=== PATIENT | male | born 1945 | race Caucasian/White ===

== ENCOUNTER 2017-04-13 10:55 | Outpatient (CLI) | payer MEDICARE | END 2017-04-13 10:56 | disposition home or self-care (01) | LOC: BICRAD 10:55 | PROVIDERS: ATTEND Family Medicine | DX: M25.562 Pain in left knee (principal); M17.12 Unilateral primary osteoarthritis, left knee ==

== ENCOUNTER 2018-06-07 08:32 | Outpatient (CLI) | payer MEDICARE ==
--- NOTE | 2018-06-07 10:51 | CT ---
CT ABDOMEN WITH AND WITHOUT IV CONTRAST: HISTORY: Renal cyst, liver cyst, prostate cancer. FINDINGS: There are no previous exams for comparison. There are mild dependent changes in the right lung base. The patient is post cholecystectomy. The p ancreas, adrenal glands, and right kidney are normal. The spleen measures 14.8 cm in length. There is a 4 x 4.5 cm cyst in the left lobe of the liver and a 3.2 x 2.7 cm cyst in the inferior aspe ct of the right lobe of the liver. A 1 cm low-density lesion in the right lobe of the liver and a 7 mm low-density lesion in the left lobe of the liver are too small to characterize but likely cysts. There is a 2 cm exophytic, partially exophytic cyst arising from the posterior cortex of the left kid pantera. No free air, free fluid, or lymphadenopathy is seen. There are vascular calcifications without evide nce of aneurysmal dilatation of the abdominal aorta. Degenerative changes are present in the spine. IMPRESSION: 1. Liver cysts. 2. Left renal cyst. 3. Splenomegaly. POS: OFF
[2018-06-07] MEDS ORDERED: Iopamidol 370 76% 100 ML VIAL ONE (11:00)
== END 2018-06-07 08:33 | disposition home or self-care (01) ==
LOC: BICCT 08:32
PROVIDERS: ATTEND Family Medicine
DX: K76.89 Other specified diseases of liver (principal); N28.1 Cyst of kidney, acquired; R16.1 Splenomegaly, not elsewhere classified
CPT/HCPCS: 74170; 82565; Q9967

== ENCOUNTER 2019-10-10 14:41 | Outpatient (CLI) | payer MEDICARE ==
--- NOTE | 2019-10-10 15:05 | RAD ---
Left ankle 3 views: 10/10/2019 COMPARISON: None available HISTORY: Ankle pain, no history of injury FINDINGS: The talar dome and the ankle mortise appear intact. There is enthesophyte formation at the origin of the plantar aponeurosis. There is mild tibiotalar joint space narrowing. No acute fracture or dislocation is noted. IMPRESSION: No acute findings.
== END 2019-10-10 14:42 | disposition home or self-care (01) ==
LOC: BICRAD 14:41
PROVIDERS: ATTEND Family Medicine
DX: M25.572 Pain in left ankle and joints of left foot (principal)

== ENCOUNTER 2022-04-20 14:23 | Outpatient (CLI) | payer MEDICARE ==
[~2022-04-20 14:23] MED LIST: Iopamidol-370 76% 500 ML 1 ML ONE
== END 2022-04-20 14:24 | disposition home or self-care (01) ==
LOC: BICCT 14:23
PROVIDERS: ATTEND Family Medicine
DX: R10.11 Right upper quadrant pain (principal); N20.0 Calculus of kidney; N28.1 Cyst of kidney, acquired; K76.89 Other specified diseases of liver
CPT/HCPCS: 74178; Q9967

== ENCOUNTER 2022-05-14 15:57 | Outpatient (CLI) | payer MEDICARE | END 2022-05-14 15:58 | disposition home or self-care (01) | LOC: BICRAD 15:57 | PROVIDERS: ATTEND Family Medicine | DX: S29.011A Strain of muscle and tendon of front wall of thorax, initial encounter (principal) | CPT/HCPCS: 71046 ==

== ENCOUNTER 2023-01-14 15:54 | Outpatient (CLI) | payer MEDICARE | END 2023-01-14 15:55 | disposition home or self-care (01) | LOC: BICRAD 15:54 | PROVIDERS: ATTEND Family Medicine | DX: M25.551 Pain in right hip (principal) ==

== ENCOUNTER 2024-11-06 10:17 | Inpatient (IN) | payer MEDICARE ==
[2024-11-05 17:08] VITALS: BMI 28.8
[2024-11-06] MEDS ORDERED: Bacitracin Zinc Ointment 30 gm TUBE ONE (11:19)
[2024-11-06] MEDS ORDERED: Lidocaine 1% PF 5 ML VIAL ONE ×2 (11:36→12:32)
[2024-11-06] MEDS ORDERED: PROPOFOL 20 ML ONE (11:36)
[2024-11-06 11:45] LABS: #Basophils Less than 0.03 10x3/uL (0.0-0.2); #Eosinophils 0.09 10x3/uL (0.0-0.7); #Monocytes 1.31 10x3/uL (0.11-0.59); #Neutrophils 7.00 10x3/uL (1.40-6.50); %Basophils 0.2 % (0.0-1.0); %Eosinophils 0.8 % (0.0-10.0); %Lymphocytes 26.7 % (21.0-51.0); %Monocytes 11.4 % (0.0-10.0); %Neutrophils 60.6 % (42.0-75.0); Hematocrit 40.8 % (42.0-52.0); Hemoglobin 13.4 g/dL (14.0-18.0); Mean Corpuscular Hemoglobin 29.6 pg (27.0-31.0); Mean Corpuscular Volume 90.3 fL (78.0-98.0); Platelet Count 196 10x3/uL (130-400); Red Blood Cell (RBC) Count 4.52 mill/uL (4.70-6.10); White Blood Cell (WBC) Count 11.54 10x3/uL (4.8-10.8)
[2024-11-06] MEDS ORDERED: Ondansetron PF 4 MG/2 ML Vial ONE (11:48)
[2024-11-06] MEDS ORDERED: CEFAZOLIN 2 GM VIAL ONE (11:52)
[2024-11-06 12:01] LABS: Anion Gap 15 mmol/L (10-20); BUN (Urea Nitrogen) 18 mg/dL (8.4-25.7); Calc. Creatinine Clearance 80 mL/min (70-130); Carbon Dioxide 24 mmol/L (23-31); Chloride 100 mmol/L (98-107); Potassium 2.9 mmol/L (3.5-5.1); Sodium 136 mmol/L (136-145)
[2024-11-06 12:02] LABS: Calcium 9.4 mg/dL (7.8-10.44); Glucose 103 mg/dL (83-110)
[2024-11-06] MEDS ORDERED: HYDROcodone/Acetaminophen 5/325 mg Tablet PO PRN (13:25)
[2024-11-06] MEDS ORDERED: Acetaminophen/Codeine 30-300mg Tablet PO PRN (13:25)
[2024-11-06] MEDS ORDERED: dilTIAZem 25 MG/5 ML VIAL ONE ×3 (13:26→13:51)
[2024-11-06] MEDS ORDERED: Communication Order-Pharmacy FS SCH (13:30)
[2024-11-06] MEDS ORDERED: Diltiazem HCl/D5W 125 MG in Premix 1 BAG IVPB SCH ×2 (13:45→20:23)
[2024-11-06] MEDS ORDERED: Vancomycin 1 GM in Premix 1 BAG IVPB SCH (16:00)
[2024-11-06 17:16] LABS: #Basophils Less than 0.03 10x3/uL (0.0-0.2); #Eosinophils Less than 0.03 10x3/uL (0.0-0.7); #Monocytes 0.43 10x3/uL (0.11-0.59); #Neutrophils 9.53 10x3/uL (1.40-6.50); %Basophils 0.1 % (0.0-1.0); %Eosinophils 0.1 % (0.0-10.0); %Lymphocytes 15.6 % (21.0-51.0); %Monocytes 3.6 % (0.0-10.0); %Neutrophils 80.3 % (42.0-75.0); Hematocrit 42.3 % (42.0-52.0); Hemoglobin 13.9 g/dL (14.0-18.0); Mean Corpuscular Hemoglobin 29.8 pg (27.0-31.0); Mean Corpuscular Volume 90.6 fL (78.0-98.0); Platelet Count 197 10x3/uL (130-400); Red Blood Cell (RBC) Count 4.67 mill/uL (4.70-6.10); White Blood Cell (WBC) Count 11.86 10x3/uL (4.8-10.8)
[2024-11-06 17:30] LABS: INR-International Normal Ratio 1.0; Prothrombin Time 13.7 sec (12.0-14.7)
[2024-11-06 17:31] LABS: PTT 30.2 sec (22.9-36.1)
[2024-11-06] MEDS: dilTIAZem 25 MG/5 ML VIAL SLOW IVP SCH (23:54)
[2024-11-06] MEDS: Potassium Chloride 20 MEQ in Premix 1 BAG IVPB SCH (23:55)
[2024-11-06] MEDS: Gentamicin Sulfate 100 MG in Premix 1 BAG IVPB SCH (23:55)
[2024-11-07] MEDS: Aspirin 81 mg Enteric Coated Tablet PO SCH (01:11)
[2024-11-07 04:31] LABS: #Basophils Less than 0.03 10x3/uL (0.0-0.2); #Eosinophils Less than 0.03 10x3/uL (0.0-0.7); #Monocytes 1.01 10x3/uL (0.11-0.59); #Neutrophils 7.28 10x3/uL (1.40-6.50); %Basophils 0.1 % (0.0-1.0); %Eosinophils 0.0 % (0.0-10.0); %Lymphocytes 21.3 % (21.0-51.0); %Monocytes 9.5 % (0.0-10.0); %Neutrophils 68.8 % (42.0-75.0); Hematocrit 37.0 % (42.0-52.0); Hemoglobin 12.3 g/dL (14.0-18.0); Mean Corpuscular Hemoglobin 29.9 pg (27.0-31.0); Mean Corpuscular Volume 90.0 fL (78.0-98.0); Platelet Count 196 10x3/uL (130-400); Red Blood Cell (RBC) Count 4.11 mill/uL (4.70-6.10); White Blood Cell (WBC) Count 10.59 10x3/uL (4.8-10.8)
[2024-11-07 04:38] LABS: ALT (SGPT) 14 U/L (Less than 45); AST (SGOT) 22 U/L (11-34); Albumin 3.3 g/dL (3.1-4.5); Alkaline Phosphatase 48 U/L (40-110); Anion Gap 14 mmol/L (10-20); BUN (Urea Nitrogen) 16 mg/dL (8.4-25.7); Bilirubin, Total 0.8 mg/dL (0.3-1.2); Calc. Creatinine Clearance 87 mL/min (70-130); Calcium 8.8 mg/dL (7.8-10.44); Carbon Dioxide 23 mmol/L (23-31); Chloride 102 mmol/L (98-107); Globulin 3.0 g/dL (2.4-3.5); Glucose 120 mg/dL (83-110); Magnesium 2.0 mg/dL (1.6-2.6); Potassium 3.2 mmol/L (3.5-5.1); Sodium 136 mmol/L (136-145)
[2024-11-07] MEDS: TETANUS, DIPHTHERIA TOX,ADULT (TDVAX) 0.5 ML VIAL IM ONE (12:05)
[2024-11-07] MEDS: Boostrix 0.5 ML (Tdap) VIAL (>/=7 yrs of age) IM ONE (12:06)
[2024-11-07] MEDS: Gentamicin Sulfate 100 MG in Premix 1 BAG IVPB SCH (17:21)
[2024-11-07 17:40] VITALS: BP 131/66; TEMP 97.9
== END 2024-11-07 18:30 | disposition home or self-care (01) | DRG 513 ==
LOC: SDC 10:17 → 2NO 14:58
PROVIDERS: ADMIT Orthopaedic Surgery Hand Surgery; ATTEND Orthopaedic Surgery Hand Surgery
PROC: 0JBJ0ZZ Excision of Right Hand Subcutaneous Tissue and Fascia, Open Approach (ICD-10-PCS; principal; 2024-11-06)
PROC: 0J9J0ZZ Drainage of Right Hand Subcutaneous Tissue and Fascia, Open Approach (ICD-10-PCS; 2024-11-06)
PROC: 3E03329 Introduction of Other Anti-infective into Peripheral Vein, Percutaneous Approach (ICD-10-PCS; 2024-11-06)
PROC: 0L970ZZ Drainage of Right Hand Tendon, Open Approach (ICD-10-PCS; 2024-11-06)
PROC: 3E0234Z Introduction of Serum, Toxoid and Vaccine into Muscle, Percutaneous Approach (ICD-10-PCS; 2024-11-07)
DX: M65.041 Abscess of tendon sheath, right hand (principal); I97.191 Other postprocedural cardiac functional disturbances following other surgery; I97.791 Other intraoperative cardiac functional disturbances during other surgery; M65.841 Other synovitis and tenosynovitis, right hand; M1A.9XX1 Chronic gout, unspecified, with tophus (tophi); E87.6 Hypokalemia; I10 Essential (primary) hypertension; Z98.890 Other specified postprocedural states; Z23 Encounter for immunization; Z79.899 Other long term (current) drug therapy; Z85.46 Personal history of malignant neoplasm of prostate; Z90.79 Acquired absence of other genital organ(s); Z90.49 Acquired absence of other specified parts of digestive tract; I48.91 Unspecified atrial fibrillation; M65.941 Unspecified synovitis and tenosynovitis, right hand
CPT/HCPCS: 36415; 80048; 80053; 80170; 83036; 83735; 84443; 85025; 85610; 85730; 87070; 87205; 88305; 89060; 93005; 93010; 93306; J0665; J1100; J1580; J2704; J7030